=== PATIENT | male | born 1990 | race African-American/Black ===

== ENCOUNTER 2018-11-20 10:25 | Emergency (ER) | payer OTHER ==
[~2018-11-20] VITALS: Ht 175.3 cm; Wt 75.0 kg
[2018-11-20] MEDS ORDERED: IBUPROFEN 800MG TABLET PO ONE (11:30)
[2018-11-20 11:38] VITALS: BP 132/86
== END 2018-11-20 12:16 | disposition home or self-care (01) ==
LOC: ER 10:25
DX: S16.1XXA Strain of muscle, fascia and tendon at neck level, initial encounter (principal); V49.49XA Driver injured in collision with other motor vehicles in traffic accident, initial encounter; Y93.89 Activity, other specified; Y92.411 Interstate highway as the place of occurrence of the external cause; R03.0 Elevated blood-pressure reading, without diagnosis of hypertension
CPT/HCPCS: 99283